=== PATIENT | female | born 1955 | race Caucasian/White ===

== ENCOUNTER → 2017-05-08 | Outpatient (CLI) | payer OTHER ==
[~2017-05-08] MED LIST: ASPI81CH PO; ATOM25 PO; Betamethasone V15 G1; CLOB.05TC TP; CLON.1 PO; DHEA PO; ESTRTP PV; Esgic Tablet1 EACH PO; FLUO10; FLUO20; LISI10; LISI5; Lamotrigine100 MG PO; MECL25 PO; MULTIVITAMINS; ONDA4ODT MM; OXYC1TAB11; PROC10 PO; PROM25 PO; PROP10; ROSU10TA PO; SULI150 PO; SULI200 PO; VENL75ER; ZOMIG; Zofran Odt4 MG SL
== END ==
LOC: LAB 18:15 → LAB FUT 05-02 13:55
DX: R29.0 Tetany (principal)
CPT/HCPCS: 87338

== ENCOUNTER → 2020-05-11 | Outpatient (CLI) | payer MEDICARE | END | disposition home or self-care (01) | LOC: PLD 16:13 → LAB 16:13 → LAB SHORT 16:13 | DX: N39.9 Disorder of urinary system, unspecified (principal) | CPT/HCPCS: 87086 ==

== ENCOUNTER → 2021-02-25 | Outpatient (CLI) | payer MEDICARE ==
[2021-02-25 11:06] LABS: Alanine Aminotransfer (ALT/SGP 130 U/L (12-78); Albumin, Blood 4.2 g/dL (3.4-5.0); Albumin/Globulin Ratio 1.4 (0.8-1.8); Alk Phos 165 U/L (40-126); Anion Gap 9 mmol/L (6-16); Aspartate Aminotrans (AST/SGOT 60 U/L (12-37); Bilirubin, Total 0.5 mg/dL (0.1-1.0); Blood Urea Nitrogen 16 mg/dL (8-24); CO2, Blood 31 mmol/L (21-32); Calcium, Blood 9.1 mg/dL (8.5-10.1); Chloride, Blood 103 mmol/L (98-108); Globulin, Blood 3.1 g/dL (2.2-4.0); Glomerular Filtration Rate >60 (60-); Glucose, Blood 114 mg/dL (70-99); Sodium, Blood 143 mmol/L (136-145); Total Protein, Blood 7.3 g/dL (6.4-8.2)
[2021-02-25 13:06] LABS: BASOPHILS ABSOLUTE AUTO 0.04 K/mm3 (0.00-0.23); BASOPHILS PERCENT AUTO 1 % (0-2); EOSINOPHILS ABSOLUTE AUTO 0.44 K/mm3 (0.00-0.68); EOSINOPHILS PERCENT AUTO 5 % (0-6); Hematocrit 45.3 % (33.0-51.0); Hemoglobin 15.2 g/dL (11.5-16.0); IMMATURE GRAN ABSOLUTE AUTO 0.02 K/mm3 (0.00-0.10); IMMATURE GRAN PERCENT AUTO 0 % (0-1); LYMPHOCYTES ABSOLUTE AUTO 2.05 K/mm3 (0.84-5.20); LYMPHOCYTES PERCENT AUTO 24 % (21-46); MONOCYTES ABSOLUTE AUTO 0.59 K/mm3 (0.16-1.47); MONOCYTES PERCENT AUTO 7 % (4-13); Mean Corpuscular HGB 29.7 pg (26.0-34.0); Mean Corpuscular HGB Conc 33.6 g/dL (31.5-36.5); Mean Corpuscular Volume 89 fL (80-100); Mean Platelet Volume 10.3 fL (9.1-12.4); NEUTROPHILS ABSOLUTE AUTO 5.52 K/mm3 (1.96-9.15); NEUTROPHILS PERCENT AUTO 64 % (41-73); Platelet Count 233 K/mm3 (150-400); RDW Coefficient Variation 12.4 % (11.7-14.2); RDW Standard Deviation 39.8 fL (35.1-46.3); Red Blood Cell Count 5.12 M/mm3 (3.80-5.20); White Blood Cell Count 8.66 K/mm3 (4.00-11.30)
== END | disposition home or self-care (01) ==
LOC: LAB 10:48 → LAB SHORT 10:48
PROVIDERS: Physician Assistant
DX: R10.11 Right upper quadrant pain (principal); K80.20 Calculus of gallbladder without cholecystitis without obstruction
CPT/HCPCS: 80053; 85025

== ENCOUNTER 2021-03-06 16:15 | Observation (INO) | payer MEDICARE ==
[~2021-03-06] VITALS: Ht 162.6 cm; Wt 86.2 kg
[2021-03-06 16:53] LABS: BASOPHILS ABSOLUTE AUTO 0.04 K/mm3 (0.00-0.23); BASOPHILS PERCENT AUTO 1 % (0-2); EOSINOPHILS PERCENT AUTO 4 % (0-6); Hematocrit 44.2 % (33.0-51.0); Hemoglobin 14.9 g/dL (11.5-16.0); IMMATURE GRAN ABSOLUTE AUTO 0.02 K/mm3 (0.00-0.10); IMMATURE GRAN PERCENT AUTO 0 % (0-1); LYMPHOCYTES ABSOLUTE AUTO 2.16 K/mm3 (0.84-5.20); LYMPHOCYTES PERCENT AUTO 26 % (21-46); MONOCYTES ABSOLUTE AUTO 0.52 K/mm3 (0.16-1.47); MONOCYTES PERCENT AUTO 6 % (4-13); Mean Corpuscular HGB 30.2 pg (26.0-34.0); Mean Corpuscular HGB Conc 33.7 g/dL (31.5-36.5); Mean Corpuscular Volume 90 fL (80-100); Mean Platelet Volume 10.7 fL (9.1-12.4); NEUTROPHILS ABSOLUTE AUTO 5.27 K/mm3 (1.96-9.15); NEUTROPHILS PERCENT AUTO 63 % (41-73); Platelet Count 199 K/mm3 (150-400); RDW Coefficient Variation 12.1 % (11.7-14.2); RDW Standard Deviation 39.4 fL (35.1-46.3); Red Blood Cell Count 4.94 M/mm3 (3.80-5.20); White Blood Cell Count 8.31 K/mm3 (4.00-11.30)
[2021-03-06 17:25] LABS: Alanine Aminotransfer (ALT/SGP 98 U/L (12-78); Albumin, Blood 4.1 g/dL (3.4-5.0); Albumin/Globulin Ratio 1.3 (0.8-1.8); Alk Phos 151 U/L (50-136); Anion Gap 5 mmol/L (6-16); Aspartate Aminotrans (AST/SGOT 51 U/L (12-37); Bilirubin, Total 0.4 mg/dL (0.1-1.0); Blood Urea Nitrogen 20 mg/dL (8-24); Bun/Creatinine Ratio 25.1 (12.0-20.0); CO2, Blood 30 mmol/L (21-32); Calcium, Blood 9.8 mg/dL (8.5-10.1); Chloride, Blood 106 mmol/L (98-108); Globulin, Blood 3.1 g/dL (2.2-4.0); Glomerular Filtration Rate >60 (60-); Glucose, Blood 111 mg/dL (70-99); Potassium, Blood 3.9 mmol/L (3.5-5.5); Sodium, Blood 141 mmol/L (136-145); Total Protein, Blood 7.2 g/dL (6.4-8.2)
[2021-03-06] MEDS ORDERED: TOPI25C PO (19:30)
[2021-03-06] MEDS ORDERED: ESTRADIOL42.5 GM (19:31)
[2021-03-06] MEDS ORDERED: ROSUVASTATIN CAL5 MG PO (19:31)
[2021-03-06] MEDS ORDERED: SULINDAC200 MG PO (19:31)
[2021-03-06] MEDS ORDERED: DESVENLAFAXINE100 M3 PO (19:31)
[2021-03-06] MEDS ORDERED: DICL75ER PO (19:35)
[2021-03-06] MEDS ORDERED: OMEP20ER PO (19:35)
[2021-03-06 19:57] LABS: Source, Urine Clean Catch
[2021-03-06 20:02] LABS: Appearance, Urine Clear (Clear); Bilirubin, Urine Neg (Neg); Blood, Urine 1+ (Neg); Color, Urine Yellow (P-Yellow); Glucose Qualitative, Urine Neg (Neg); Ketones, Urine Neg (Neg); Leukocyte Esterase, Urine 1+ (Neg); Nitrite, Urine Neg (Neg); Protein, Urine Neg (Neg); Specific Gravity, Urine 1.025 (1.003-1.022); Urobilinogen, Urine NORM (Normal)
[2021-03-06 20:15] LABS: Bacteria Mod /hpf; Red Blood Cells, Urine 0-2 /hpf (0-2); Squamous Epithelial Cells Few /hpf (Few); White Blood Cells, Urine 0-2 /hpf (0-5)
[2021-03-06 21:16] LABS: Influenza A, PCR NEGATIVE (NEGATIVE); Influenza B, PCR NEGATIVE (NEGATIVE); Resp Syncytial Virus, PCR NEGATIVE (NEGATIVE); SARS-Cov-2 (COVID-19) PCR, MMC NEGATIVE (NEGATIVE)
[2021-03-07 04:24] LABS: Hematocrit 41.3 % (33.0-51.0); Hemoglobin 14.2 g/dL (11.5-16.0); Mean Corpuscular HGB 29.9 pg (26.0-34.0); Mean Corpuscular HGB Conc 34.4 g/dL (31.5-36.5); Mean Corpuscular Volume 87 fL (80-100); Mean Platelet Volume 10.6 fL (9.1-12.4); Platelet Count 191 K/mm3 (150-400); RDW Coefficient Variation 11.9 % (11.7-14.2); Red Blood Cell Count 4.75 M/mm3 (3.80-5.20); White Blood Cell Count 7.18 K/mm3 (4.00-11.30)
[2021-03-07 04:53] LABS: Alanine Aminotransfer (ALT/SGP 87 U/L (12-78); Albumin, Blood 3.8 g/dL (3.4-5.0); Albumin/Globulin Ratio 1.4 (0.8-1.8); Alk Phos 140 U/L (50-136); Anion Gap 7 mmol/L (6-16); Aspartate Aminotrans (AST/SGOT 40 U/L (12-37); Bilirubin, Total 0.7 mg/dL (0.1-1.0); Blood Urea Nitrogen 17 mg/dL (8-24); Bun/Creatinine Ratio 23.4 (12.0-20.0); CO2, Blood 29 mmol/L (21-32); Calcium, Blood 9.3 mg/dL (8.5-10.1); Chloride, Blood 105 mmol/L (98-108); Creatinine, Blood 0.73 mg/dL (0.40-1.00); Globulin, Blood 2.8 g/dL (2.2-4.0); Glomerular Filtration Rate >60 (60-); Glucose, Blood 100 mg/dL (70-99); Potassium, Blood 3.5 mmol/L (3.5-5.5); Sodium, Blood 141 mmol/L (136-145); Total Protein, Blood 6.6 g/dL (6.4-8.2)
--- NOTE | 2021-03-07 06:02 | NUR ---
PT ARRIVAL TO UNIT AT APPROX 2130. MIN PAIN TO R UPPER ABD QUADRANTDENIES N/V. IV FLUIDS RUNNING. NPO EXCEPT MEDS AND ICE CHIPS SINCE ADMIT. BP SLIGHTLY ELEVATED-TRENDING DOWN. TORADIOL GIVEN X1 FOR PAIN. NO ISSUES OVERNIGHT. WILL CONTINUE TO MONITOR
--- NOTE | 2021-03-07 09:44 | NUR ---
History, Chart, Medications and Allergies reviewed before start of procedure. Lungs anteriorly clear to Auscultation. Pre-Op teaching done. Pt verbalizes understanding.
--- NOTE | 2021-03-07 10:47 | NUR ---
PATIENT HAVING N/V WITH DR ROSS, ANESTHESIOLOGIST AT BEDSIDE. NEW ORDERS TO GIVE ZOFRAN 4MG IV AND SCOP PATCH FOR NAUSEA. GOOD RELIEW WITH ZOFRAN. WILL APPLY PATCH WHEN AVAILABLE.
--- NOTE | 2021-03-07 12:35 | NUR ---
CARE TO JOEL BENAVIDES
--- NOTE | 2021-03-07 12:40 | NUR ---
REPORT RECEIVED FROM MAKAYLA CARBALLO. ASSUMED PACU CARE AT 1230. PT SNORING, ORAL AIRWAY IN PLACE UPON REPORT, BUT PT SPIT OUT AT 1240. WAKES TO TOUCH - RESPONSE MOANING.
--- NOTE | 2021-03-08 04:00 | NUR ---
SHIFT SUMMARY REGULAR DIET. R AC IV. NO TELE. PT WAS ON ROOM AIR BUT HAD O2 SATURATION OF 90%. PT PLACED ON 2L O2 AND WAS UP TO 95% O2 SATURATION. PT COMPLAINS OF NAUSEA AND A STREET. MEDICATED PER EMAR. PT GIVEN CRACKERS, HE MIST, AND JELLO. PT STS NAUSEA WAS RELIEVED A BIT. OTHER VITALS STABLE. PT POST SURGERY DAY 1. 4 LAP SITES ARE CDI AND NO DRAINAGE NOTED. PT UP INDEPENDENTLY IN ROOM TO BATHROOM.
--- NOTE | 2021-03-08 05:10 | NUR ---
PT STS STILL HAS A STREET. OFFERED HER PAIN MEDICATION PER EMAR AND SHE STS SHE WILL WAIT ON THE PAIN MEDICATION. PT STS HER NAUSEA IS BETTER AT THIS TIME.
--- NOTE | 2021-03-08 06:07 | NUR ---
PT OFFERED PAIN MEDICATION AGAIN AND SHE REFUSED.
[2021-03-08] MEDS ORDERED: OXYC5 PO (08:22)
--- NOTE | 2021-03-08 09:53 | NUR ---
DISCHARGE: DISCHARGE INSTUCTIONS GIVEN AT THIS TIME. PATIENT VERBALIZED UNDERSTANDING AT THIS TIME. PATIENT TO FOLLOW UP WITH DR JIMENES IN 2 WEEKS, HIS OFFICE WILL CALL PATIENT FOR APPOINTMENT. DRESSINGS TO ABDOMEN ARE CDI. NO SIGNS OR SYMPTOMS ACUTE DISTRESS NOTED. TOLERATING PO PAIN MEDS AND FOOD/FLUIDS WELL. NO COMPLAINTS OF NAUSEA AT THIS TIME. IS PICKING HER UP.
== END 2021-03-08 10:00 | disposition home or self-care (01) ==
LOC: ER 16:15 → SURS 16:16
PROVIDERS: Emergency Medicine; Physician Assistant; Surgery; ADMIT Surgery
PROC: 0FT44ZZ Resection of Gallbladder, Percutaneous Endoscopic Approach (ICD-10-PCS; principal; 2021-03-07 10:30)
PROC: BF12YZZ Fluoroscopy of Gallbladder using Other Contrast (ICD-10-PCS; principal; 2021-03-07 10:30)
DX: K80.10 Calculus of gallbladder with chronic cholecystitis without obstruction (principal); K82.8 Other specified diseases of gallbladder; R03.0 Elevated blood-pressure reading, without diagnosis of hypertension; Z20.822 Contact with and (suspected) exposure to COVID-19; Z88.1 Allergy status to other antibiotic agents; Z88.8 Allergy status to other drugs, medicaments and biological substances
CPT/HCPCS: 0241U; 36415; 74300; 76705; 80053; 81001; 83690; 85025; 85027; 87086; 88304; 96374; 96375; 96376; 99285-25; A9270; C1729; G0378; J0690; J1100; J1170; J1885; J2250; J2405; J2550; J2704; J3010; J7120

== ENCOUNTER → 2023-05-23 | Outpatient (CLI) | payer OTHER ==
[~2023-05-23] MED LIST changes: +DESVENLAFAXINE100 M3 PO; +DICL75ER PO; +ESTRADIOL42.5 GM; +OMEP20ER PO; +OXYC5 PO; +ROSUVASTATIN CAL5 MG PO; +SULINDAC200 MG PO; +TOPI25C PO
[2023-05-27 05:32] LABS: HSV 1 SUBTYPE BY PCR Not Detected; HSV 2 SUBTYPE BY PCR Not Detected; HSV SUBTYPE SOURCE VAGINAL
== END ==
LOC: LAB SHORT 12:00 → LAB 12:00
PROVIDERS: Obstetrics & Gynecology
DX: B00.1 Herpesviral vesicular dermatitis (principal)
CPT/HCPCS: 87529

== ENCOUNTER → 2024-03-03 | Outpatient (CLI) | payer OTHER ==
[2024-03-07 21:41] LABS: OVA AND PARASITE,FECAL INTERP Negative (Negative)
== END | disposition home or self-care (01) ==
LOC: LAB 10:45 → LAB SHORT 10:45 → LAB FUT 03-02 17:10
PROVIDERS: Physician Assistant
DX: R19.4 Change in bowel habit (principal)
CPT/HCPCS: 87177; 87209

== ENCOUNTER 2024-06-04 10:06 | Day surgery (SDC) | payer OTHER ==
[2024-06-04] VITALS (9 sets, daily range): BP systolic 130–156; BP diastolic 78–103
[~2024-06-04] VITALS: Ht 159 cm; Wt 84.4 kg
[~2024-06-04 10:06] MED LIST changes: +AIMOVIG AU140 MG/1 M SQ; +CLOBETASOL PROP59 ML; +DESV50 PO; +DOC250 PO; +ESOM20 PO; +Lactated Ringer's 1,000 ML IV SCH; +PROC5 PO
[2024-06-04] MEDS ORDERED: Bupivacaine 0.25% Epi 1:200000 30 ML Vial ONE (10:26)
[2024-06-04] MEDS ORDERED: ABILIFY5 MG PO (10:45)
[2024-06-04] MEDS ORDERED: propofoL 20 ML IV ONE (11:11)
[2024-06-04] MEDS ORDERED: Lidocaine HCl 2% 20 ML MDV ONE (11:12)
[2024-06-04] MEDS ORDERED: Dexamethasone Sod Phos 10 MG/ML 1ML VIAL ONE (11:17)
[2024-06-04] MEDS ORDERED: FentaNYL Citrate 50 MCG/ML 2 ML Injection ONE (11:18)
[2024-06-04] MEDS ORDERED: EpiNEPhrine 1 MG/1 ML 1ML Vial ONE (11:40)
[2024-06-04] MEDS ORDERED: Ondansetron HCl 2 MG / ML 2ML Vial IV PRN ×2 (12:00)
[2024-06-04] MEDS ORDERED: HYDROcodone 5-APAP 325 TAB PO PRN (12:00)
[2024-06-04] MEDS ORDERED: Ibuprofen 400 MG Tab PO ONE (12:30)
--- NOTE | 2024-06-04 13:20 | NUR ---
DISCHARGE INSTRUCTIONS GIVEN. KETTY PAD WITH SCANT SANGINOUS DRAINAGE. PT GIVEN FRESH KETTY PAD. DISCHARGE TO HOME-OUT VIA WHEELCHAIR WITH BELONGINGS AND DISCHARGE INSTRUCTIONS ON HAND.
== END 2024-06-04 13:20 | disposition home or self-care (01) ==
LOC: ORSCMMR 10:06 → ORD 12:00 → ORSCMMR 12:00
PROVIDERS: Obstetrics & Gynecology
PROC: 0UBMXZX Excision of Vulva, External Approach, Diagnostic (ICD-10-PCS; principal; 2024-06-04 12:00)
DX: C51.9 Malignant neoplasm of vulva, unspecified (principal); G47.33 Obstructive sleep apnea (adult) (pediatric); E78.5 Hyperlipidemia, unspecified; I25.2 Old myocardial infarction; J45.909 Unspecified asthma, uncomplicated; F41.9 Anxiety disorder, unspecified; F90.9 Attention-deficit hyperactivity disorder, unspecified type; E66.9 Obesity, unspecified; Z68.33 Body mass index [BMI] 33.0-33.9, adult; K21.9 Gastro-esophageal reflux disease without esophagitis; R73.03 Prediabetes; Z79.899 Other long term (current) drug therapy
CPT/HCPCS: 82947; 88305; 88341; 88342; A9270; J0171; J1100; J2704; J3010; J7120